=== PATIENT | male | born 1990 | race Caucasian/White ===

== ENCOUNTER 2022-05-21 13:41 | Emergency (ER) | payer OTHER ==
[~2022-05-21] VITALS: Ht 180.3 cm; Wt 80.2 kg
[2022-05-21 15:00] VITALS: BP 133/67
== END 2022-05-21 15:00 | disposition home or self-care (01) ==
LOC: M ED 13:41
DX: R07.89 Other chest pain (principal)

== ENCOUNTER 2022-05-25 11:48 | Emergency (ER) | payer OTHER ==
[~2022-05-25] VITALS: Ht 180.3 cm; Wt 78.2 kg
[2022-05-25] MEDS ORDERED: IBUP-1114 PO (12:00)
[2022-05-25] MEDS ORDERED: PERC5TAB12 PO (16:48)
[2022-05-25 17:00] VITALS: BP 129/88
== END 2022-05-25 17:01 | disposition home or self-care (01) ==
LOC: M ED 11:48
DX: R07.89 Other chest pain (principal)